=== PATIENT | female | born 1995 | race Hispanic/Latino ===

== ENCOUNTER → 2019-05-06 08:40 | Outpatient (CLI) | payer OTHER, SELFPAY ==
--- NOTE | 2019-05-06 | DI.MRI.S_ITS ---
PROCEDURE: MR KNEE RT WO CON INDICATIONS: Other instability, right knee TECHNIQUE: Noncontrast sagittal PD fast spin echo and T2 fast spin echo with fat saturation, sagittal 3-D FLASH with fat saturation; coronal T1 spin echo and PD fast spin echo with fat saturation, and axial PD fast spin echo with fat saturation through the knee. COMPARISON: None. FINDINGS: Image quality: Diagnostic. Bones and joint: There is no acute fracture or dislocation. No suspicious osseous lesions are evident. 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 There is moderate marrow edema identified involving the medial border of the patella and the periphery of the lateral femoral condyle. Lateral patellar subluxation is present. There is a small knee joint effusion. The hyaline articular cartilage is moderately heterogeneous within the patellofemoral compartment. No definite full-thickness cartilaginous defects are evident. The cartilage within the medial and lateral tibiofemoral compartments appears to be within normal limits. Cruciate ligaments: The anterior and posterior cruciate ligaments are intact. Menisci: No displaced tears of the medial and lateral menisci are evident. The posterior root ligaments are intact. Medial structures: The medial collateral ligament is intact. The semimembranosus tendon insertion is intact. The imaged portions of the pes anserinus tendons are unremarkable. No significant fluid is contained within the pes anserinus bursa. Lateral structures: The popliteal tendon is intact. The lateral collateral ligament proper (fibular collateral ligament) and the proximal tibiofibular ligaments are intact. The distal aspect of the biceps femoris tendon and the iliotibial band are intact. Anterior structures: The quadriceps and patellar tendons are intact. However, there is mild increased signal identified involving the proximal patellar tendon There is no significant edema in the infrapatellar fat pad. IMPRESSION: 1. Findings suggest transient lateral patellar dislocation with residual bone contusions involving the patella and lateral femoral condyle. 2. 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 No definite full-thickness defects. 3. No proximal patellar tendinopathy. 4. Small knee joint effusion. Dictated by: Gallo Mckeon M.D. on 05/06/2019 at 8:43 Approved by: Gallo Mckeon M.D. on 05/06/2019 at 8:45
== END ==
PROVIDERS: Visit Provider Orthopaedic Surgery
DX: M25.361 Other instability, right knee (principal); M25.461 Effusion, right knee
CPT/HCPCS: 73721